=== PATIENT | male | born 1960 | race Caucasian/White ===

== ENCOUNTER → 2017-07-27 | Outpatient (CLI) | payer OTHER ==
[~2017-07-27] MED LIST: CARI350T PO; HYDR-623 PO; LISI1TAB10 PO; MELO-195 PO; SULF1TAB38 PO; TRAM50TA2 PO
--- NOTE | 2017-07-27 11:06 | Diagnostic Imaging Report ---
EXAMINATION: Three views of the cervical spine. INDICATION: Chronic neck pain. FINDINGS: There is straightening of the lordotic cervical curvature. There is satisfactory alignment of the posterior spinal line. There is moderate disc height loss at the C4-5 level with prominent anterior osteophytes. There are also anterior osteophytes at C6-7. Small posterior osteophytes appear to be present at these levels as well. The lateral masses of C1 and C2 have normal alignment as seen on the open-mouth odontoid view. The prevertebral soft tissues appear unremarkable. IMPRESSION: Disc degenerative changes, most prominent at the C4-5 and C6-7 levels, with small posterior osteophytes noted. Dictated by: Dictated on workstation # [id number]
--- NOTE | 2017-07-27 11:08 | Diagnostic Imaging Report ---
Three views of the lumbar spine. INDICATION: Back pain. FINDINGS: There is satisfactory alignment of the lumbar spine. The vertebral body heights are preserved. Disc heights are preserved. There are multilevel anterior osteophytes noted in the mid to lower lumbar spine. No posterior osteophytes are seen. There is question of fusion along the upper aspect of the SI joints. IMPRESSION: Mild degenerative changes in the [id number] from lumbar spine. Dictated by: Dictated on workstation # [id number]
== END ==
LOC: RAD 10:21
PROVIDERS: ATTEND Family Medicine
DX: M50.321 Other cervical disc degeneration at C4-C5 level (principal); M54.5 Low back pain
CPT/HCPCS: 72040; 72100

== ENCOUNTER 2017-09-12 14:43 | Outpatient (RCR) | payer OTHER | END 2017-09-15 13:53 | disposition home or self-care (01) | PROVIDERS: ATTEND Family Medicine | DX: M51.36 Other intervertebral disc degeneration, lumbar region (principal) ==